=== PATIENT | female | born 1940 | race Caucasian/White ===

== ENCOUNTER 2019-08-29 09:43 | Inpatient (IN) | payer MEDICARE, OTHER ==
[~2019-08-29] VITALS: Ht 157.5 cm; Wt 84.0 kg
[~2019-08-29 09:43] MED LIST: ALLO100T PO; AMIO200T61 PO; ASPI-41 PO; ATOR40TA PO; CARV-50 PO; COLE3.75 PO; DOCU-28 PO; FURO-150 PO; HYDR-4383 PO; NORCO10T PO; PANT40TA39 PO; ROSU20TA2 PO; TRAM1TAB7 PO; ZES2.5T PO
[2019-08-29] MEDS ORDERED: ondansetron 4mg rapidly disintigrating tab PO ONE (09:55)
[2019-08-29] MEDS ORDERED: normal saline 1000ML IV soln IVB ONE (10:10)
[2019-08-29 10:28] LABS: BASOPHILS # (AUTO) 0.1 X10'3 (0-0.2); EOSINOPHILS # (AUTO) 0.1 X10'3 (0-0.9); EOSINOPHILS % (AUTO) 0.8 % (0-6); HEMOGLOBIN 13.1 g/dl (12.0-16.0); LYMPHOCYTES # (AUTO) 1.9 X10'3 (1.1-4.8); LYMPHOCYTES % (AUTO) 26.7 % (21-51); MEAN CORPUSCULAR HEMOGLOBIN 31.7 PG (27.0-31.0); MEAN CORPUSCULAR HGB CONC 33.7 g/dL (33.0-36.5); MEAN CORPUSCULAR VOLUME 94.2 FL (78-98); MEAN PLATELET VOLUME 9.4 FL (7.4-10.4); MONOCYTES # (AUTO) 0.4 X10'3 (0-0.9); MONOCYTES % (AUTO) 5.1 % (2-12); NEUTROPHILS # (AUTO) 4.9 X10'3 (1.8-7.7); NEUTROPHILS % (AUTO) 66.4 % (42-75); PLATELET COUNT 241 X10'3 (140-440); RED BLOOD COUNT 4.14 X10'6 (4.20-5.60); RED CELL DISTRIBUTION WIDTH 14.9 % (11.5-14.5); WHITE BLOOD COUNT 7.3 X10'3 (4.5-11.0)
[2019-08-29 10:37] LABS: PARTIAL THROMBOPLASTIN TIME 30 SECONDS (22-32)
[2019-08-29 10:39] LABS: ALANINE AMINOTRANSFERASE 27 U/L (12-78); ALBUMIN 3.5 G/DL (3.4-5.0); ALBUMIN/GLOBULIN RATIO 0.9 (1.1-1.5); ALKALINE PHOSPHATASE 79 IU/L (46-116); ANION GAP 9 (8-16); ASPARTATE AMINO TRANSFERASE 15 U/L (10-37); BILIRUBIN,TOTAL 0.2 MG/DL (0.1-1.0); BLOOD UREA NITROGEN 20 MG/DL (7-18); BUN/CREATININE RATIO 27.8 (6.6-38.0); CALCIUM 8.6 MG/DL (8.5-10.1); CHLORIDE 104 MMOL/L (99-107); CREATININE 0.72 MG/DL (0.40-0.90); GLUCOSE 158 MG/DL (70-104); POTASSIUM 3.5 MMOL/L (3.5-5.1); SODIUM 142 MMOL/L (135-145); TOTAL CARBON DIOXIDE 29.3 MMOL/L (24-32); TOTAL PROTEIN 7.4 G/DL (6.4-8.2); eGFR 78 ML/MIN
[2019-08-29 10:43] LABS: CLARITY,URINE SLIGHTLY CLOUDY (Clear); COLOR,URINE YELLOW (Yellow); GLUCOSE, URINE NEGATIVE (Neg); KETONES,URINE NEGATIVE (Neg); LEUKOCYTE ESTERASE ,URINE NEGATIVE (Neg); NITRITES, URINE POSITIVE (Neg); OCCULT BLOOD,URINE NEGATIVE (Neg); PROTEIN,URINE NEGATIVE (Neg); UROBILINOGEN,URINE 0.2 E.U/dL (0.2-1.0)
[2019-08-29 10:44] LABS: UA COLLECTION TYPE CLN CATCH MIDSTREAM
[2019-08-29 10:45] LABS: MUCUS STRANDS FEW /LPF (Neg); SQUAMOUS EPITHELIAL CELL,UR MODERATE /LPF (FEW)
[2019-08-29 10:45] LABS: MAGNESIUM 1.6 MG/DL (1.5-2.4)
[2019-08-29 10:46] LABS: BACTERIA,URINE 4+ /HPF (Neg); RBC,URINE 0-2 /HPF (0-2); WBC,URINE 30-50 /HPF (0-4)
[2019-08-29 10:47] LABS: WBC CLUMPS,URINE FEW /HPF (NEGATIVE)
--- NOTE | 2019-08-29 11:08 | NUR ---
FAMILY AT BEDSIDE. PT IS TALKING AND LAUGHING WITH THEM.
--- NOTE | 2019-08-29 11:11 | NUR ---
CHANGE BP CUFF TO LONGER CUFF FOR BETTER BP
[2019-08-29] MEDS ORDERED: CefTRIAXone/D5W-Rocephin 1gm 50 ML IV ONE (11:30)
[2019-08-29] MEDS ORDERED: TRAM1TAB7 PO (11:53)
[2019-08-29] MEDS ORDERED: HYDROcodone/acetaminophen 5mg/325mg tablet PO PRN (11:55)
[2019-08-29] MEDS ORDERED: morphine 2 MG/ML inj. syringe IV PRN ×2 (11:55)
[2019-08-29] MEDS ORDERED: acetaminophen 325mg tablet PO PRN (11:55)
[2019-08-29] MEDS ORDERED: magnesium hydroxide 30ml (MOM) UD suspension PO PRN (11:55)
[2019-08-29] MEDS ORDERED: mag hydrox/Alum hydrox/simeth 30ml oral suspension PO PRN (11:55)
[2019-08-29] MEDS ORDERED: ondansetron/PF 4mg/2ml inj IV PRN (11:55)
--- NOTE | 2019-08-29 11:56 | NUR ---
PT STATES SHE HAS A LOT OF MEDICATIONS AT HOME BUT ONLY TAKES TRAMADAL.
[2019-08-29 12:24] LABS: HEMOGLOBIN A1C 6.4 % (4.5-6.2)
[2019-08-29] MEDS ORDERED: TRAM50TA2 PO (12:27)
[2019-08-29] MEDS ORDERED: traMADol 50MG tablet PO PRN (13:15)
--- NOTE | 2019-08-29 14:00 | NUR ---
Patient arrived on unit. Transferred from [facility] to bed. Patient alert and oriented. Denies pain. Tele monitoring initiated. Will continue to monitor.
[2019-08-29] MEDS ORDERED: CLOP75TA15 PO (14:23)
[2019-08-29] MEDS ORDERED: GABA600T13 PO (14:23)
[2019-08-29] MEDS ORDERED: CARV-50 PO (14:23)
[2019-08-29] MEDS ORDERED: LISI2.5T2 PO (14:23)
[2019-08-29] MEDS ORDERED: FURO-150 PO (14:23)
[2019-08-29 15:00] VITALS: BP 137/68
[2019-08-29] MEDS ORDERED: CARV3.122 PO (17:15)
--- NOTE | 2019-08-29 17:50 | NUR ---
PAGER ID: [phone] MESSAGE: [phone] Sinai Rosario: Patients home meds have been reconciled, please review. History of DM, do you want to put on hypoglycemic protocol? Pt would like a muscle relaxer, used to take baclofen. Thanks, Nayeli [phone]
[2019-08-29] MEDS ORDERED: baclofen 10mg tablet PO PRN (17:55)
--- NOTE | 2019-08-29 17:55 | NUR ---
New orders noted for [facility] accue checks, and baclofen 10mg TID PRN.
[2019-08-29 19:00] VITALS: BP 142/93
--- NOTE | 2019-08-29 19:02 | NUR ---
Problems reprioritized. Patient report given, questions answered & plan of care reviewed with JACOBO Herr.
[2019-08-29] MEDS: traMADol 50MG tablet PO SCH (22:12)
[2019-08-29 23:00] VITALS: BP 154/100
[2019-08-30 03:00] VITALS: BP 147/72
[2019-08-30 05:06] LABS: BASOPHILS # (AUTO) 0.1 X10'3 (0-0.2); BASOPHILS % (AUTO) 1.1 % (0-1); EOSINOPHILS % (AUTO) 0.3 % (0-6); HEMATOCRIT 39.4 % (35.0-45.0); HEMOGLOBIN 13.2 g/dl (12.0-16.0); LYMPHOCYTES # (AUTO) 2.4 X10'3 (1.1-4.8); LYMPHOCYTES % (AUTO) 27.3 % (21-51); MEAN CORPUSCULAR HEMOGLOBIN 31.1 PG (27.0-31.0); MEAN CORPUSCULAR HGB CONC 33.4 g/dL (33.0-36.5); MEAN CORPUSCULAR VOLUME 93.4 FL (78-98); MONOCYTES # (AUTO) 0.6 X10'3 (0-0.9); MONOCYTES % (AUTO) 6.9 % (2-12); NEUTROPHILS # (AUTO) 5.7 X10'3 (1.8-7.7); NEUTROPHILS % (AUTO) 64.4 % (42-75); PLATELET COUNT 254 X10'3 (140-440); RED BLOOD COUNT 4.22 X10'6 (4.20-5.60); RED CELL DISTRIBUTION WIDTH 14.6 % (11.5-14.5); WHITE BLOOD COUNT 8.8 X10'3 (4.5-11.0)
[2019-08-30 05:21] LABS: ALBUMIN 3.4 G/DL (3.4-5.0); ANION GAP 7 (8-16); BLOOD UREA NITROGEN 15 MG/DL (7-18); BUN/CREATININE RATIO 22.4 (6.6-38.0); CALCIUM 9.1 MG/DL (8.5-10.1); CHLORIDE 106 MMOL/L (99-107); CHOL/HDL RATIO 4.2 (0.00-4.99); CHOLESTEROL 193 MG/DL (0-200); CREATININE 0.67 MG/DL (0.40-0.90); GLUCOSE 118 MG/DL (70-104); HDL CHOLESTEROL 46 MG/DL (35-60); LDL CHOLESTEROL 135 MG/DL (50-100); POTASSIUM 3.6 MMOL/L (3.5-5.1); SODIUM 144 MMOL/L (135-145); TOTAL CARBON DIOXIDE 31.1 MMOL/L (24-32); TRIGLYCERIDES 109 MG/DL (20-135); eGFR 84 ML/MIN
--- NOTE | 2019-08-30 06:15 | NUR ---
Patient in room PCU 3023l. I have received report from JACOBO Herr and had the opportunity to ask questions and assume patient care.
[2019-08-30 07:00] VITALS: BP 121/59
[2019-08-30] MEDS: CefTRIAXone/D5W-Rocephin 1gm 50 ML IV SCH ×2 (07:34→08:00)
[2019-08-30] MEDS ORDERED: enoxaparin 40mg/0.4ml syringe SUBCUT SCH (08:00)
[2019-08-30] MEDS: traMADol 50MG tablet PO SCH (08:00)
[2019-08-30] MEDS ORDERED: sulfamethoxazole/trimethoprim DS (800/160mg) tablet PO ONE (09:15)
--- NOTE | 2019-08-30 09:20 | NUR ---
Dr. Cruz at bedside, new order to stop rocephin and give one time dose of Bactrim DS.
[2019-08-30] MEDS ORDERED: SULF1TAB49 PO (10:11)
[2019-08-30] MEDS ORDERED: traMADol 50MG tablet PO SCH (10:57)
--- NOTE | 2019-08-30 11:54 | NUR ---
Patient stable for discharge per MD order. All instructions and education given to patient and , all questions and concerns addressed. PIV d/c'd, catheter intact. Tele monitor removed and returned to telephone sterilizer. New medications called into [facility] on [address]. All belongings sent with patient. Patient trasported off unit via wheel chair to private vehicle.
== END 2019-08-30 12:05 | disposition home or self-care (01) | DRG 690 ==
LOC: ER 09:45 → ED HOLD 11:55 → EDBEDREQTM 13:47 → PCU 3S 13:55
PROVIDERS: ADMIT Internal Medicine; ATTEND Internal Medicine
DX: N39.0 Urinary tract infection, site not specified (principal); I45.89 Other specified conduction disorders; I44.2 Atrioventricular block, complete; I25.10 Atherosclerotic heart disease of native coronary artery without angina pectoris; I48.0 Paroxysmal atrial fibrillation; E11.9 Type 2 diabetes mellitus without complications; E78.5 Hyperlipidemia, unspecified; I10 Essential (primary) hypertension; R09.02 Hypoxemia; E66.9 Obesity, unspecified; Z66 Do not resuscitate; G89.29 Other chronic pain; M10.9 Gout, unspecified; M19.90 Unspecified osteoarthritis, unspecified site; M54.9 Dorsalgia, unspecified; K21.9 Gastro-esophageal reflux disease without esophagitis; Z79.02 Long term (current) use of antithrombotics/antiplatelets; Z79.899 Other long term (current) drug therapy; I25.2 Old myocardial infarction; Z95.1 Presence of aortocoronary bypass graft; Z88.8 Allergy status to other drugs, medicaments and biological substances; Z68.33 Body mass index [BMI] 33.0-33.9, adult
CPT/HCPCS: 36415; 71045; 80048; 80053; 80061; 81001; 82948; 83036; 83735; 83880; 84100; 84484; 85025; 85610; 85730; 87077; 87081; 87088; 87186; 93005; 93306; 96361; 96374; 99291; G0378; J0696; J1650